=== PATIENT | female | born 1995 | race African-American/Black ===

== ENCOUNTER 2016-07-08 16:44 | Emergency (ER) | payer OTHER ==
[~2016-07-08] VITALS: Ht 162.6 cm; Wt 61.7 kg
[2016-07-08 16:45] VITALS: BP 115/75
== END 2016-07-08 17:34 | disposition home or self-care (01) ==
LOC: M ED 17:26
DX: S61.230A Puncture wound without foreign body of right index finger without damage to nail, initial encounter (principal); W45.8XXA Other foreign body or object entering through skin, initial encounter; Y92.89 Other specified places as the place of occurrence of the external cause; Y93.89 Activity, other specified; Y99.0 Civilian activity done for income or pay